=== PATIENT | male | born 1990 | race Caucasian/White ===

== ENCOUNTER 2018-12-25 09:10 | Emergency (ER) | payer OTHER ==
--- NOTE | 2018-12-25 10:20 | EDPHY ---
H & P Time Seen by Provider: 12/25/18 09:28 HPI/ROS: Chief complaint: Right middle finger laceration History of present illness: This is a 28-year-old male who presents to the emergency department for right middle finger laceration. Patient was dissecting a biologic specimen with a scalpel when it slipped cutting his finger. Reports mild pain. Bleeding. Bleeding has been controlled with a dressing. He denies abnormal coolness or paresthesias in the finger. He can still move the finger well. No other injuries reported. His tetanus is up-to- date. Smoking Status: Never smoked Physical Exam: General: Alert, nontoxic. Skin: Patient has a 0.5 cm skin flap. Musculoskeletal: Patient is moving finger in the DIP, PIP and MCP joints all negrete without difficulty. Vascular: Capillary refill brisk in the right middle finger. Radial pulse 2 +. Neurologic: Sensation intact using light touch and two-point discrimination. Constitutional: Initial Vital Signs Temperature (C) 36.7 C 12/25/18 09:12 Heart Rate 83 12/25/18 09:12 Respiratory Rate 16 12/25/18 09:12 Blood Pressure 143/91 H 12/25/18 09:12 O2 Sat (%) 96 12/25/18 09:12 O2 Delivery Mode Room Air Allergies/Adverse Reactions: No Known Allergies Allergy (Unverified 12/25/18 09:12) Home Medications: Medication Instructions Recorded NK [No Known Home Meds] 12/25/18 MDM/Departure - MDM Procedures: Procedure: Laceration repair. Verbal consent was obtained from the patient. The 0.5 cm laceration on the right middle finger was anesthetized in the usual fashion. The wound was irrigated, draped and explored to its base with a gloved finger. There were no deep structures involved. No tendon injury was identified. The wound was repaired with 5 0 Prolene, 2 simple interrupted sutures. The wound repair was simple. The procedure was performed by myself. ED Course/Re-evaluation: Patient seen under the supervision of my secondary supervising physician Dr. Gautam Daniel. Patient presents for a right middle finger laceration. The finger is neurovascularly intact. He has good musculoskeletal control. The wound is repaired. Home care is discussed. He is follow up with a primary care doctor for recheck. Return precautions are given. Differential Diagnosis: Included but not limited to superficial laceration, deep structure injury, foreign body contamination - Depart Disposition: Home, Routine, Self-Care Clinical Impression: Laceration Condition: Good Instructions: Care For Your Stitches (ED), Laceration (ED), Acute Wounds (ED) Additional Instructions: Follow-up with a primary care doctor this week for recheck Stitches to be removed in 5-7 days If symptoms worsen or new symptoms develop return to the emergency room for recheck Referrals: NONE *PRIMARY CARE P,. [Primary Care Provider] - As per Instructions [facility],. [Clinic] - As per Instructions
[2018-12-25 10:42] VITALS: BP 127/95
== END 2018-12-25 10:42 | disposition home or self-care (01) ==
PROC: 0HQFXZZ Repair Right Hand Skin, External Approach (ICD-10-PCS; principal; 2018-12-25)
DX: S61.212A Laceration without foreign body of right middle finger without damage to nail, initial encounter (principal); W26.0XXA Contact with knife, initial encounter; Y93.89 Activity, other specified; Y99.0 Civilian activity done for income or pay